=== PATIENT | male | born 1975 | race Caucasian/White ===

== ENCOUNTER 2017-05-08 14:42 | Emergency (ER) | payer OTHER ==
[2017-05-08 14:42] VITALS: BMI 29.2
[2017-05-08 15:32] VITALS: TEMP 97.9
[2017-05-08 15:52] VITALS: RESP 14
--- NOTE | 2017-05-08 16:02 | C.PDOC ---
History Of Present Illness Patient is a 42 y/o male, with PMHx of CABG (2009), and removal of benign brain tumor in 2009, that presents to the ED for evaluation of episode of sudden onset of blurry vision. Patient states he was driving this afternoon, when he suddenly experienced an episode of slight headache followed by blurry vision which resolved spontaneously. Notes that his vision returned back to normal. Otherwise, denies any dizziness, lightheadedness, chest pain, shortness of breath, or any other associated symptoms at this time. Time Seen by Provider: 05/08/17 15:05 Chief Complaint (Nursing): High Blood Pressure History Per: Patient History/Exam Limitations: no limitations Onset/Duration Of Symptoms: Hrs Current Symptoms Are (Timing): Still Present Associated Symptoms: Blurred Vision, Headache (slight). denies: Chest Pain, Dyspnea, Dizziness, Focal Weakness Severity: None Pain Scale Rating Of: 0 Exacerbating Factor(s): Pos: None Recent travel outside of the [place]: No Additional History Per: Patient Past Medical History Reviewed: Historical Data, Nursing Documentation, Vital Signs Vital Signs: Last Vital Signs Temp 97.9 F 05/08/17 15:30 Pulse 60 05/08/17 17:50 Resp 14 05/08/17 17:50 BP 123/74 05/08/17 17:50 Pulse Ox 99 05/08/17 17:50 - Medical History PMH: HTN, Hypercholesterolemia, Seizures (-FROM MASS ON BRAIN-REMOVED 2009- NO FURTHER SIEZURES) Surgical History: CABG (? 2-PT. NOT SURE.) Other Surgeries: Craniotomy for benign tumor '10 Family History: States: Unknown Family Hx - Social History Hx Tobacco Use: No Hx Alcohol Use: No Hx Substance Use: No Review Of Systems Except As Marked, All Systems Reviewed And Found Negative. Constitutional: Negative for: Fever, Chills Eyes: Negative for: Vision Change Cardiovascular: Negative for: Chest Pain, Palpitations Respiratory: Negative for: Cough, Shortness of Breath Gastrointestinal: Negative for: Nausea, Vomiting, Abdominal Pain Neurological: Negative for: Weakness, Numbness, Headache, Dizziness Physical Exam - Physical Exam Appears: Non-toxic, No Acute Distress Skin: Normal Color, Warm, Dry Head: Atraumatic, Normacephalic Eye(s): bilateral: Normal Inspection, PERRL, EOMI Neck: Normal ROM, Supple Chest: Symmetrical, No Tenderness Cardiovascular: Rhythm Regular, No Murmur Respiratory: No Rales, No Rhonchi, No Wheezing Gastrointestinal/Abdominal: Soft, No Tenderness Extremity: Normal ROM Neurological/Psych: Oriented x3, Normal Speech, Normal Cognition, Normal Cranial Nerves, No Cerebellar Signs, Normal Motor, Normal Sensation ED Course And Treatment - Laboratory Results Result Diagrams: 05/08/17 16:09 05/08/17 16:09 ECG: Interpreted By Me, Viewed By Me ECG Rhythm: Sinus Rhythm ECG Interpretation: Normal Rate From EC (BPM) O2 Sat by Pulse Oximetry: 100 (RA) Progress Note: Labs, head CT, CXR, EKG ordered and reviewed. Medical Decision Making Medical Decision Making: Pt stable in the ED No further symptoms Labs and CT reviewed Results discused (Rn Translating) with pt including observation, and unclear nature of these brief symptoms Pt prefers to go home and will follow up with dr Christie Disposition Counseled Patient/Family Regarding: Diagnosis, Need For Followup - Disposition Referrals: Shaik Christie MD [Staff Provider] - Disposition: HOME/ ROUTINE Disposition Time: 18:27 Condition: GOOD Additional Instructions: Take all usual meds Follow up with you PCP in 1 - 2 days Return to the ED for any new or worsening symptoms Forms: Gen Discharge Inst Palestinian - Clinical Impression Clinical Impression: Blurry vision, bilateral - Scribe Statement The provider has reviewed the documentation as recorded by the Scribe Rema Miguel All medical record entries made by the Aamndaibe were at my direction and personally dictated by me. I have reviewed the chart and agree that the record accurately reflects my personal performance of the history, physical exam, medical decision making, and the department course for this patient. I have also personally directed, reviewed, and agree with the discharge instructions and disposition.
[2017-05-08 16:17] LABS: BASO % 0.4 % (0.0-2.0); EOS # 0.1 K/uL (0.0-0.7); EOS % 1.3 % (0.0-4.0); HEMATOCRIT 43.2 % (35.0-51.0); LYMPH # 2.8 K/uL (1.0-4.3); LYMPH % 43.5 % (20.0-40.0); MEAN CELL VOLUME 90.1 fL (80.0-94.0); MEAN CORPUSCULAR HEMOGLOBIN 30.2 pg (27.0-31.0); MEAN CORPUSCULAR HGB CONC 33.5 g/dL (33.0-37.0); MEAN PLATELET VOLUME 10.1 fL (7.2-11.7); MONO # 0.5 K/uL (0.0-0.8); WHITE BLOOD COUNT 6.3 K/uL (4.8-10.8)
[2017-05-08 16:23] LABS: CHLORIDE 102 mmol/L (98-107); POTASSIUM 4.4 mmol/L (3.6-5.2); SODIUM 139 mmol/L (132-148)
[2017-05-08 16:25] LABS: ALB/GLOB RATIO 1.7 (1.0-2.1); ALKALINE PHOSPHATASE 66 U/L (38-126); AST/SGOT 31 U/L (17-59); BILIRUBIN,TOTAL 0.7 mg/dL (0.2-1.3); CARBON DIOXIDE 26 mmol/L (22-30); GFR AFRICAN-AMERICAN > 60; TOTAL PROTEIN 7.4 g/dL (6.3-8.3)
[2017-05-08 16:26] LABS: ALT/SGPT 48 U/L (21-72); BLOOD UREA NITROGEN 16 mg/dL (9-20); CALCIUM 9.3 mg/dl (8.6-10.4); GLUCOSE,RANDOM 101 mg/dL (75-110)
--- NOTE | 2017-05-08 16:41 | RAD ---
PROCEDURE: CHEST RADIOGRAPH, 1 VIEW HISTORY: Chest pain COMPARISON: 10/04/2014 FINDINGS: LUNGS: The lungs are clear. PLEURA: No pneumothorax or pleural effusions. CARDIOVASCULAR: The heart is normal in size. Status post median sternotomy. OSSEOUS STRUCTURES: No significant abnormalities. VISUALIZED UPPER ABDOMEN: Normal. OTHER FINDINGS: None. IMPRESSION: No acute findings.
--- NOTE | 2017-05-08 17:27 | CT ---
PROCEDURE: CT HEAD WITHOUT CONTRAST. HISTORY: [place], episode of change in vision COMPARISON: None available. TECHNIQUE: Axial computed tomography images were obtained through the head/brain without intravenous contrast. Radiation dose: Total exam DLP = 986.59 mGy-cm. This CT exam was performed using one or more of the following dose reduction techniques: Automated exposure control, adjustment of the mA and/or kV according to patient size, and/or use of iterative reconstruction technique. FINDINGS: HEMORRHAGE: No intracranial hemorrhage. BRAIN: No mass effect or edema. Intracranial atherosclerotic calcifications. Left frontal encephalomalacia. Please note that MRI with diffusion imaging is more sensitive in the detection of acute ischemic event. VENTRICLES: No hydrocephalus. CALVARIUM: Left frontal craniotomy. Calvarial linear lucencies within the left calvarium suspected secondary to craniotomy rather than nondisplaced acute fracture; correlate clinically. No associated soft tissue swelling. PARANASAL SINUSES: Mucosal polyp versus retention cyst within the left frontal sinus. The visualized paranasal sinuses appear otherwise grossly unremarkable. MASTOID AIR CELLS: Unremarkable as visualized. No inflammatory changes. OTHER FINDINGS: IMPRESSION: Calvarial linear lucencies within the left calvarium suspected secondary to prior craniotomy rather than nondisplaced acute fracture; correlate clinically. No associated soft tissue swelling. Left frontal encephalomalacia. Please note that MRI with diffusion imaging is more sensitive in the detection of acute ischemic event. Findings discussed with DEVIN Weaver on 05/08/17 at 5:21 p.m..
[2017-05-08 17:51] VITALS: BP 123/74; PULSE 60
[2017-05-08 18:29] VITALS: O2SAT 100
--- NOTE | 2017-05-11 14:28 | CARD ---
APPROVED REPORT EKG Measurement Heart [id number] <Conclusion> Normal sinus rhythm Normal ECG
== END 2017-05-08 18:44 | disposition home or self-care (01) ==
LOC: C.ER 14:42
DX: H53.8 Other visual disturbances (principal)